=== PATIENT | female | born 1960 | race Two or more races ===

== ENCOUNTER 2021-11-23 11:52 | Emergency (ER) | payer OTHER ==
[~2021-11-23] VITALS: Ht 162.6 cm; Wt 77.1 kg
[2021-11-23] MEDS ORDERED: ZESTRIL20 MG PO (12:08)
[2021-11-23] MEDS ORDERED: CHILDREN'S ASPI81 MG PO (12:08)
== END 2021-11-23 13:48 | disposition home or self-care (01) ==
LOC: ER 11:52
DX: L03.113 Cellulitis of right upper limb (principal); I10 Essential (primary) hypertension; Z88.6 Allergy status to analgesic agent